=== PATIENT | male | born 1980 | race Caucasian/White ===

== ENCOUNTER 2016-10-22 17:43 | Emergency (ER) | payer SELFPAY ==
[~2016-10-22] VITALS: Ht 160 cm; Wt 70.0 kg
[~2016-10-22 17:43] MED LIST: BACT2OIN TOP; BACT800T5 PO; CEPH500C3 PO; IBUP800 PO
[2016-10-22 17:55] VITALS: BP 137/66; PULSE 80; RESP 18; TEMP 98.1; O2SAT 97
--- NOTE | 2016-10-22 18:14 | PD ---
HPI Chief Complaint: Alcohol/Drug Intoxication Time Seen by Provider: 18:12 Travel History International Travel<30 days: No Contact w/Intl Traveler<30days: No Traveled to known affect area: No History of Present Illness HPI 35 year old male patient presents to the emergency department for evaluation after an apparent overdose. According to the RN and EMS, the patient was found unresponsive by his mother. When EMS arrived, he was up and walking. The patient states that he injected himself with heroin, but believes it could've been laced with Fentanyl. Patient states he feels like he is getting a migraine headache, but denies any other complaints at this time. He is awake and alert. He states he has history of migraine headaches and is blind in his right eye. Patient denies any chest pain or shortness breath. No fevers or chills. No abdominal pain. No nausea, vomiting, diarrhea. PFSH Past Medical History Asthma: No Blood Disorders: No Heart Rhythm Problems: No Cancer: No Cardiovascular Problems: No High Cholesterol: No Chemotherapy: No Chest Pain: No Congestive Heart Failure: No COPD: No Diabetes: No Diminished Hearing: No Endocrine: No Gastrointestinal Disorders: No Genitourinary: No Hypertension: No Immune Disorder: No Implanted Vascular Access Dvce: No Musculoskeletal: Yes Neurologic: No Psychiatric: No Reproductive: No Respiratory: No Radiation Therapy: No Sleep Apnea: No Thyroid Disease: No Past Surgical History Other Surgery: Yes (TONSILS, LT ARM FOR IV DRUG USE) Social History Alcohol Use: Yes (VERY RARE) Tobacco Use: Yes (1 ppd) Substance Use: Yes (history of Indira/Flakka, currently abuses heroin/fentanyl) Allergies-Medications (Allergen,Severity, Reaction): Coded Allergies: No Known Allergies (Unverified , 03/07/16) Reported Meds & Prescriptions Reported Meds & Active Scripts Active Mupirocin 2% Oint (22 gm) (Mupirocin) 2 % Oin 1 Applic TOP BID 14 Days Bactrim DS (Sulfamethoxazole-Trimethoprim DS) 1 Tab Tab 1 Tab PO BID 10 Days Keflex (Cephalexin Monohydrate) 500 Mg Cap 500 Mg PO BID 10 Days Motrin 800 Mg Tab (Ibuprofen) 800 Mg Tab 800 Mg PO Q8H PRN 10 Days Review of Systems Except as stated in HPI: all other systems reviewed are Neg Physical Exam Narrative GENERAL: Well-nourished, well-developed male patient, ambulatory. Afebrile. SKIN: Focused skin assessment warm/dry. HEAD: Normocephalic. Atraumatic. EYES: No scleral icterus. No injection or drainage. NECK: Supple, trachea midline. No JVD or lymphadenopathy. CARDIOVASCULAR: Regular rate and rhythm without murmurs, gallops, or rubs. RESPIRATORY: Breath sounds equal bilaterally. No accessory muscle use. Lungs sounds are clear to auscultation. GASTROINTESTINAL: Abdomen soft, non-tender, nondistended. MUSCULOSKELETAL: No cyanosis, or edema. BACK: Nontender without obvious deformity. No CVA tenderness. Data Data Last Documented VS Vital Signs Date Time Temp Pulse Resp B/P Pulse Ox O2 Delivery O2 Flow Rate FiO2 10/22/16 17:56 81 18 97 Room Air 10/22/16 17:55 98.1 137/66 MDM Medical Decision Making Medical Screen Exam Complete: Yes Emergency Medical Condition: Yes Medical Record Reviewed: Yes Differential Diagnosis Heroin overdose versus medical clearance versus substance abuse Narrative Course 35-year-old male is brought to the emergency department by EMS after being found unresponsive by his mother after injecting heroin. However, upon EMSs arrival, the patient's up and walking. He did not receive any medications by EMS included Narcan. He is awake and alert this time and denies complaints. I discussed the case with my attending physician, Dr. Lancaster, who agrees with plan and disposition. Patient will be discharged when he has a ride home. The patient was discharged in stable condition with instructions, including return instructions and follow up instructions. Diagnosis Primary Impression: Accidental overdose of heroin Qualified Code: T40.1X1A - Accidental overdose of heroin, initial encounter Referrals: Primary Care Physician call for appointment Patient Instructions: General Instructions, Opioid Overdose (ED) Additional Instructions: Stop injecting drugs. Follow-up with your primary care physician. Return to the emergency department for any acute worsening of symptoms. Med/Other Pt SpecificInfo: No Change to Meds Disposition: 01 DISCHARGE HOME Condition: Stable RussellBritney RIGGS Oct 22, 2016 18:14
--- NOTE | 2016-10-22 18:28 | PD ---
Data Data Last Documented VS Vital Signs Date Time Temp Pulse Resp B/P Pulse Ox O2 Delivery O2 Flow Rate FiO2 10/22/16 17:56 81 18 97 Room Air 10/22/16 17:55 98.1 137/66 MDM Supervised Visit with AARON: Yes Narrative Course The history, exam, and medical decision-making in the associated midlevel provider note were completed with my assistance. I reviewed and agree with the findings presented. I attest that I had a [id number] encounter with the patient on the same day, and personally performed and documented my assessment and findings in the medical record. *My assessment and Findings: This is a 35-year-old male who reportedly was found unresponsive by his mother with a needle next to him. He thinks he injected IV Dilaudid. He never required Narcan for reversal and by the time EMS arrived he was awake and alert. He appears well now. I think this was just an episode of recreational opiate abuse. I think he can be discharged home and I'll think he requires any additional testing. Diagnosis Primary Impression: Opiate abuse, episodic Highet,Paulina Phillips MD Oct 22, 2016 18:28
--- NOTE | 2016-10-23 13:56 | EKG ---
Date Performed: 10/22/2016 Time Performed: 17:58:56 PTAGE: 35 years EKG: Sinus rhythm POSSIBLE LEFT ATRIAL ENLARGEMENT Since previous tracing, no significant change noted BORDERLINE ECG PREVIOUS TRACING : 03/07/2016 22.29 DOCTOR: [place] Ryan Interpretating Date/Time 10/23/2016 13:55:42
== END 2016-10-22 20:57 | disposition home or self-care (01) ==
LOC: NEPE 17:43
DX: T40.1X1A Poisoning by heroin, accidental (unintentional), initial encounter (principal); F11.10 Opioid abuse, uncomplicated; R94.31 Abnormal electrocardiogram [ECG] [EKG]; F17.210 Nicotine dependence, cigarettes, uncomplicated
CPT/HCPCS: 93005; 99283

== ENCOUNTER 2016-12-23 00:49 | Emergency (ER) | payer SELFPAY ==
[~2016-12-23] VITALS: Ht 172.7 cm; Wt 55.0 kg
[2016-12-23 00:50] VITALS: BP 115/56; PULSE 69; RESP 16; TEMP 98.6; O2SAT 94
--- NOTE | 2016-12-23 01:25 | PD ---
HPI Chief Complaint: OD/ Ingestion Time Seen by Provider: 01:15 Travel History International Travel<30 days: No Contact w/Intl Traveler<30days: No Traveled to known affect area: No History of Present Illness HPI 36-year-old man with injection drug use today who presents after reported overdose. He was using cocaine and heroin earlier, and use additional heroin this evening. He apparently was pulseless and apneic a nurse friend started CPR. On EMS arrival he is awake and talking and alert. He did not receive any naloxone. He has no complaints at this time. History Past Medical History Narrative Medical Active IV drug use Social History Alcohol Use: Yes (VERY RARE) Tobacco Use: Yes (1 ppd) Allergies-Medications (Allergen,Severity, Reaction): Coded Allergies: No Known Allergies (Unverified , 12/23/16) Reported Meds & Prescriptions Reported Meds & Active Scripts Active No Active Prescriptions or Reported Medications Review of Systems Except as stated in HPI: all other systems reviewed are Neg Physical Exam Narrative GENERAL: 36 year-old man, little bit shallow, no acute distress. SKIN: Focused skin assessment warm/dry. Scattered sores in track [place]. HEAD: Atraumatic. Normocephalic. EYES: Pupils equal and round. No scleral icterus. No injection or drainage. ENT: No nasal bleeding or discharge. Mucous membranes pink and moist. NECK: Trachea midline. No JVD. CARDIOVASCULAR: Regular rate and rhythm. No murmur appreciated. RESPIRATORY: No accessory muscle use. Clear to auscultation. Breath sounds equal bilaterally. GASTROINTESTINAL: Abdomen soft, non-tender, nondistended. Hepatic and splenic margins not palpable. MUSCULOSKELETAL: No obvious deformities. No clubbing. No cyanosis. No edema. NEUROLOGICAL: Awake and alert. No obvious cranial nerve deficits. Motor grossly within normal limits. Normal speech. Data Data Last Documented VS Vital Signs Date Time Temp Pulse Resp B/P (MAP) Pulse Ox O2 Delivery O2 Flow Rate FiO2 12/23/16 00:50 98.6 69 16 115/56 (75) 94 MDM Medical Decision Making Medical Screen Exam Complete: Yes Emergency Medical Condition: Yes Differential Diagnosis Overdose, aspiration, other Narrative Course Medical decision-making 36-year-old man with overdose following injection heroin use. Looks well. Breathing easily. Overdose was accidental. Likely monitored in the emergency department. Recommend cessation. Diagnosis Primary Impression: Accidental overdose of heroin Referrals: [facility] Patient Instructions: General Instructions Additional Instructions: Avoid heroin use. Scripts No Active Prescriptions or Reported Meds Disposition: 01 DISCHARGE HOME Condition: Mekhi Muro MD Dec 23, 2016 01:25
== END 2016-12-23 05:05 | disposition home or self-care (01) ==
LOC: NEPC 00:49
DX: T40.1X1A Poisoning by heroin, accidental (unintentional), initial encounter (principal)
CPT/HCPCS: 99283